=== PATIENT | male | born 1995 | race Asian ===

== ENCOUNTER 2018-12-28 12:18 | Emergency (ER) | payer SELFPAY ==
[2018-12-28 12:23] VITALS: BP 137/65
--- NOTE | 2018-12-28 12:32 | Event Note ---
ED Screening Note Date of service: 12/28/18 Time: 12:29 ED Screening Note: This is a 23 y.o. M. that presents to the ER with BLE pain from below knees radiating to ankles since yesterday. Reports pain as sharp, radiating from below knees to ankles, pain worse with weight bearing. Denies injury, swelling, bruising. This initial assessment/diagnostic orders/clinical plan/treatment(s) is/are subject to change based on patients health status, clinical progression and re- assessment by fellow clinical providers in the ED. Further treatment and workup at subsequent clinical providers discretion. Patient/guardian urged not to elope from the ED as their condition may be serious if not clinically assessed and managed. Initial orders include:
--- NOTE | 2018-12-28 14:01 | Emergency Department Report ---
Chief Complaint: Extremity Injury, Lower Stated Complaint: BILAT LEG PAIN Time Seen by Provider: 12/28/18 12:29 - HPI History of Present Illness: Patient is a 23-year-old male who states that he was on his feet for approximately 30 hours with work was having pain when he walks and his bilateral calves. Patient states is no pain with pressing on the cast is just when he is has is full weight. Patient denies any swelling fever shortness of breath partial direct trauma. - ROS Review of Systems: All other systems are reviewed and are negative - Exam Vital Signs: Vital Signs 12/28/18 12:20 Temperature 97.7 F Pulse Rate 83 Respiratory 18 Rate Blood Pressure 137/65 O2 Sat by Pulse 98 Oximetry Physical Exam: Patient's has no tenderness on palpation to the bilateral calves. She does state is very uncomfortable when standing upright. Patient denies any pain with flexing the foot while sitting. There is no warmth or swelling. MSE screening note: Focused history and physical exam performed. Due to findings the following was ordered: ED Medical Decision Making - Medical Decision Making Has no medical emergency at this time. He continue to take Motrin [id number] and rest. ED Disposition for MSE Clinical Impression: Muscle strain Disposition: Z-07 MED SCREENING EXAM-LEFT Is pt being admited?: No Does the pt Need Aspirin: No Condition: Stable Instructions: Muscle Strain (ED) Additional Instructions: He can take up to 800 mg of ibuprofen every 6-8 hours for pain Forms: Work/School Release Form(ED) Time of Disposition: 14:00
== END 2018-12-28 15:11 | disposition left against medical advice (07) ==
LOC: ED 12:18
DX: S86.912A Strain of unspecified muscle(s) and tendon(s) at lower leg level, left leg, initial encounter (principal); S86.911A Strain of unspecified muscle(s) and tendon(s) at lower leg level, right leg, initial encounter; X50.1XXA Overexertion from prolonged static or awkward postures, initial encounter; Y93.89 Activity, other specified; Y92.89 Other specified places as the place of occurrence of the external cause; Y99.8 Other external cause status